=== PATIENT | female | born 1980 | race Caucasian/White ===

== ENCOUNTER → 2016-11-27 | Outpatient (CLI) | payer OTHER, BC ==
--- NOTE | 2016-11-27 12:33 | US ---
EXAMINATION TYPE: US abdomen complete DATE OF EXAM: 11/27/2016 10:52 AM COMPARISON: NONE CLINICAL HISTORY: Cholecystitis K81.9. ABD pain EXAM MEASUREMENTS: Liver Length: 12.5 cm Gallbladder Wall: 0.2 cm CBD: 0.4 cm Spleen: 9.1 cm Right Kidney: 11.8 x 4.7 x 4.7 cm Left Kidney: 11.1 x 5.0 x 4.4 cm Pancreas: wnl Liver: wnl Gallbladder: wnl Evidence for sonographic Zambrano's sign: No CBD: wnl Spleen: wnl Right Kidney: wnl Left Kidney: wnl Upper IVC: wnl Abd Aorta: wnl No abnormality visualized within ABD IMPRESSION: 1. Normal abdomen ultrasound
== END | disposition home or self-care (01) ==
LOC: RADUSWWP 10:20
PROVIDERS: ATTEND Internal Medicine
DX: K81.9 Cholecystitis, unspecified (principal)
CPT/HCPCS: 76700

== ENCOUNTER → 2016-12-11 | Outpatient (CLI) | payer OTHER, BC ==
--- NOTE | 2016-12-11 12:14 | NM ---
EXAMINATION TYPE: NM hepatobiliary w EF DATE OF EXAM: 12/11/2016 COMPARISON: NONE HISTORY: R1011 rt upper quad pain TECHNIQUE: After the intravenous administration of 5.2 mCi Tc 99m Mebrofenin hepatobiliary scintigrap hy is performed. Immediate images post injection. FINDINGS: There is satisfactory initial accumulation of tracer by the liver. The gallbladder is visualized wit hin 8 minutes. The small bowel activity is noted within 24 minutes. At one hour 8 ounces of oral en sure plus is given to mimic CCK and gallbladder ejection fraction is calculated at 90% . Therefore th ere is no scintigraphic evidence of cystic or common bile duct obstruction to suggest acute cholecyst itis or gallbladder dyskinesia. IMPRESSION: Elevated gallbladder ejection fraction which may reflect hypercontractile state.
== END | disposition home or self-care (01) ==
LOC: RADNMMAIN 10:03
PROVIDERS: ATTEND Internal Medicine
DX: K82.8 Other specified diseases of gallbladder (principal); R10.11 Right upper quadrant pain
CPT/HCPCS: 78226; A9537

== ENCOUNTER → 2018-03-30 | Outpatient (CLI) | payer BC ==
[2018-03-30 11:24] LABS: ALT 19 U/L (9-52); AST 21 U/L (14-36); Amylase 49 U/L (30-110); Blood Urea Nitrogen 14 mg/dL (7-17); Lipase 201 U/L (23-300)
[2018-03-30 16:59] LABS: Hepatitis A Antibody IgM Non-Reactive (Non-Reactive); Hepatitis B Core IgM Non-Reactive (Non-Reactive)
== END | disposition home or self-care (01) ==
LOC: LABWHC1 10:48
PROVIDERS: ATTEND Otolaryngology
DX: R14.0 Abdominal distension (gaseous) (principal); R53.83 Other fatigue
CPT/HCPCS: 36415; 80074; 82150; 82565; 83690; 84450; 84460; 84520

== ENCOUNTER 2022-07-14 09:34 | Observation (INO) | payer BC ==
--- NOTE | 2022-07-14 10:34 | ED ---
General Adult HPI - General Chief complaint: Chest Pain Stated complaint: chest pain Time Seen by Provider: 07/14/22 09:51 Source: patient Mode of arrival: ambulatory Limitations: no limitations - History of Present Illness Initial comments: Dictation was produced using [employer] dictation software. please excuse any grammatical, word or spelling errors. Chief Complaint: 42-year-old female presents emergency chest pain History of Present Illness: 42-year-old female she presents emergency department for chest pain. She initially presented to urgent care where she was redirected and sent to the emergency room. Since yesterday patient has been having dull achy chest pressure anteriorly. Shortly after she started to experience sharp pain that radiated to her right shoulder. She states that she did have some pain that went on to extremity. Patient denies any medical problems. Denies any history of tobacco use. States that her grandfather had been diagnosed with heart issues in his elderly years. Patient states that she does have some mild symptoms at the bedside. She did have some some nausea. No associated diaphore sis. The ROS documented in this emergency department record has been reviewed and confirmed by me. Those systems with pertinent positive or negative responses have been documented in the HPI. All other systems are other negative and/or noncontributory. PHYSICAL EXAM: General Impression: Alert and oriented x3, not in acute distress HEENT: Normocephalic atraumatic, extra-ocular movements intact, pupils equal and reactive to light bilaterally, mucous membranes moist. Cardiovascular: Heart regular rate and rhythm Chest: Able to complete full sentences, no retractions, no tachypnea Abdomen: abdomen soft, non-tender, non-distended, no organomegaly Musculoskeletal: Pulses present and equal in all extremities, no peripheral edema Motor: no focal deficits noted Neurological: CN II-XII grossly intact, no focal motor or sensory deficits noted Skin: Intact with no visualized rashes Psych: Normal affect and mood ED course: 42-year-old female presents emergency department for atypical chest pain with typical features. Vital signs upon arrival are within acceptable limits. Physical examination is benign. EKG shows no signs of ischemia or infarction. Nursing notes and chart review was performed EKG interpreted by me: Ventricular rate 85, sinus rhythm,. 151, QRS 86, QTC 49. No GA prolongation, no QTC prolongation, no ST or T-wave changes noted. Overall, this EKG is unremarkable Laboratory evaluation obtained. CBC, coag panel metabolic panel is unremarkable. Abdominal labs negative. Troponin is normal. Chest x-ray is nonacute. Disposition options were discussed with patient she would like to be admitted to observation for headache monitoring and cardiology consultation. Patient admitted to [facility]. Was pt. sent in by a medical professional or institution? @ no Did you speak to anyone other than the patient for history? @ no Did you review nursing and triage notes? @Yes, agree Were old charts reviewed? @No Differential Diagnosis? @ MDM Differential Chest Pain: Stable Angina, Unstable Angina, STEMI, NSTEMI Aortic Dissection, Pneumothorax, Musculoskeletal, Esophageal Spasm GERD, Cholecystitis, Pancreatitis, Zoster This is not meant to be an all-inclusive list. EKG interpreted by me (3pts min.)? @' see above X-rays interpreted by me (1pt min.)? @see above CT interpreted by me (1pt min.)? @ no U/S interpreted by me (1pt. min.)? @None What testing was considered but not performed? (CT, X-rays, U/S, labs)? Why? @CT was considered however low risk for pulmonary embolism What meds were considered but not given? Why? @ none Did you discuss the management of the patient with other professionals? @Case discussed with hospitalist Did you reconcile home meds? @ none Was smoking cessation discussed for >3mins.? @ none Was critical care preformed (if so, how long)? @ none Were there social determinants of health that impacted care today? How? (Homelessness, low income, unemployed, alcoholism, drug addiction, transportation, low edu. Level, literacy, decrease access to med. care, residential, rehab)? @ no Was there de-escalation of care discussed even if they declined? (Discuss DNR or withdrawal of care, Hospice)? @ na What co-morbidities impacted this encounter? (DM, HTN, Smoking, COPD, CAD, Cancer, CVA, Hep., AIDS, mental health diagnosis, sleep apnea, morbid obesit y)? @ none Was patient admitted / discharged? @Admitted to observation Undiagnosed new problem with uncertain prognosis? @Angina Drug Therapy requiring intensive monitoring for toxicity (Heparin, Nitro, Insulin, Cardizem)? @Cardiac monitoring Were any procedures done? @ none Diagnosis/symptom? @Atypical chest pain with typical features Acute, or Chronic, or Acute on Chronic? @Acute Uncomplicated (without systemic symptoms) or Complicated (systemic symptoms)? @Uncomplicated Side effects of treatment? @ none Exacerbation, Progression, or Severe Exacerbation] @ no Poses a threat to life or bodily function? @ no - Related Data Home Medications Medication Instructions Recorded Confirmed Atomoxetine HCl [Strattera] 50 mg PO HS 07/14/22 07/14/22 Ibuprofen [Motrin Ib] 800 mg PO Q8H PRN 07/14/22 07/14/22 Omeprazole 40 mg PO HS PRN 07/14/22 07/14/22 traZODone HCL [Desyrel] 50 mg PO HS 07/14/22 07/14/22 Allergies Allergy/AdvReac Type Severity Reaction Status Date / Time No Known Allergies Allergy Verified 07/14/22 11:50 Review of Systems ROS Statement: Those systems with pertinent positive or pertinent negative responses have been documented in the HPI. ROS Other: All systems not noted in ROS Statement are negative. Past Medical History Past Medical History: No Reported History History of Any Multi-Drug Resistant Organisms: None Reported Past Surgical History: Breast Surgery Past Psychological History: ADD/ADHD Smoking Status: Never smoker Past Alcohol Use History: Occasional Past Drug Use History: None Reported General Exam Limitations: no limitations Course Vital Signs 07/14/22 07/14/22 09:41 12:29 Temperature 98.6 F Pulse Rate 89 75 Respiratory 18 16 Rate Blood Pressure 127/84 123/81 O2 Sat by Pulse 100 99 Oximetry Medical Decision Making - Lab Data Result diagrams: 07/14/22 10:35 07/14/22 10:35 Lab Results 07/14/22 07/14/22 07/14/22 Range/Units 10:35 10:35 10:35 WBC 3.4 L (3.8-10.6) k/uL RBC 3.78 L (3.80-5.40) m/uL Hgb 12.5 (11.4-16.0) gm/dL Hct 36.7 (34.0-46.0) % MCV 97.3 (80.0-100.0) fL MCH 33.0 (25.0-35.0) pg MCHC 34.0 (31.0-37.0) g/dL RDW 12.1 (11.5-15.5) % Plt Count 188 (150-450) k/uL MPV 8.2 Neutrophils % 61 % Lymphocytes % 31 % Monocytes % 5 % Eosinophils % 1 % Basophils % 1 % Neutrophils # 2.1 (1.3-7.7) k/uL Lymphocytes # 1.1 (1.0-4.8) k/uL Monocytes # 0.2 (0-1.0) k/uL Eosinophils # 0.0 (0-0.7) k/uL Basophils # 0.0 (0-0.2) k/uL PT 10.1 (9.0-12.0) sec INR 0.9 (<1.2) APTT 22.7 (22.0-30.0) sec Sodium 139 (137-145) mmol/L Potassium 4.2 (3.5-5.1) mmol/L Chloride 104 (98-107) mmol/L Carbon Dioxide 28 (22-30) mmol/L Anion Gap 7 mmol/L BUN 13 (7-17) mg/dL Creatinine 0.70 (0.52-1.04) mg/dL Est GFR (CKD-EPI)AfAm >90 (>60 ml/min/1.73 sqM) Est GFR (CKD-EPI)NonAf >90 (>60 ml/min/1.73 sqM) Glucose 87 (74-99) mg/dL Calcium 9.3 (8.4-10.2) mg/dL Magnesium 2.0 (1.6-2.3) mg/dL Total Bilirubin 0.7 (0.2-1.3) mg/dL AST 27 (14-36) U/L ALT 20 (4-34) U/L Alkaline Phosphatase 47 (38-126) U/L Troponin I (0.000-0.034) ng/mL Total Protein 7.3 (6.3-8.2) g/dL Albumin 4.6 (3.5-5.0) g/dL Lipase 125 (23-300) U/L 07/14/22 Range/Units 10:35 WBC (3.8-10.6) k/uL RBC (3.80-5.40) m/uL Hgb (11.4-16.0) gm/dL Hct (34.0-46.0) % MCV (80.0-100.0) fL MCH (25.0-35.0) pg MCHC (31.0-37.0) g/dL RDW (11.5-15.5) % Plt Count (150-450) k/uL MPV Neutrophils % % Lymphocytes % % Monocytes % % Eosinophils % % Basophils % % Neutrophils # (1.3-7.7) k/uL Lymphocytes # (1.0-4.8) k/uL Monocytes # (0-1.0) k/uL Eosinophils # (0-0.7) k/uL Basophils # (0-0.2) k/uL PT (9.0-12.0) sec INR (<1.2) APTT (22.0-30.0) sec Sodium (137-145) mmol/L Potassium (3.5-5.1) mmol/L Chloride (98-107) mmol/L Carbon Dioxide (22-30) mmol/L Anion Gap mmol/L BUN (7-17) mg/dL Creatinine (0.52-1.04) mg/dL Est GFR (CKD-EPI)AfAm (>60 ml/min/1.73 sqM) Est GFR (CKD-EPI)NonAf (>60 ml/min/1.73 sqM) Glucose (74-99) mg/dL Calcium (8.4-10.2) mg/dL Magnesium (1.6-2.3) mg/dL Total Bilirubin (0.2-1.3) mg/dL AST (14-36) U/L ALT (4-34) U/L Alkaline Phosphatase (38-126) U/L Troponin I <0.012 (0.000-0.034) ng/mL Total Protein (6.3-8.2) g/dL Albumin (3.5-5.0) g/dL Lipase (23-300) U/L Disposition Clinical Impression: Chest pain Disposition: ADMITTED IP TO THIS HOSP Condition: Fair Referrals: Yann Schmitt MD [Primary Care Provider] - 1-2 days Decision Time: 12:36
--- NOTE | 2022-07-14 10:41 | XR ---
EXAMINATION TYPE: XR chest 2V DATE OF EXAM: 07/14/2022 10:10 AM COMPARISON: None TECHNIQUE: XR chest 2V Frontal and lateral views of the chest. CLINICAL INDICATION:Female, 42 years old with history of pain; FINDINGS: Lungs/Pleura: There is no evidence of pleural effusion, focal consolidation, or pneumothorax. Pulmonary vascularity: Unremarkable. Heart/mediastinum: Cardiomediastinal silhouette is unremarkable. Musculoskeletal: No acute osseous pathology. IMPRESSION: No acute cardiopulmonary disease/process.
[2022-07-14 11:07] LABS: Basophils % (A) 1 %; Eosinophils % (A) 1 %; HCT 36.7 % (34.0-46.0); HGB 12.5 gm/dL (11.4-16.0); Lymphocytes # (A) 1.1 k/uL (1.0-4.8); Lymphocytes % (A) 31 %; MCV 97.3 fL (80.0-100.0); Mean Platelet Volume 8.2; Monocytes # (A) 0.2 k/uL (0-1.0); Monocytes % (A) 5 %; Neutrophils # (A) 2.1 k/uL (1.3-7.7); Neutrophils % (A) 61 %; Platelet Count 188 k/uL (150-450); RBC 3.78 m/uL (3.80-5.40); RDW 12.1 % (11.5-15.5); WBC 3.4 k/uL (3.8-10.6)
[2022-07-14 11:11] LABS: ALT 20 U/L (4-34); AST 27 U/L (14-36); African American GFR (CKD) >90 (>60 ml/min/1.73 sqM); Albumin 4.6 g/dL (3.5-5.0); Alkaline Phosphatase 47 U/L (38-126); Anion Gap 7 mmol/L; Blood Urea Nitrogen 13 mg/dL (7-17); Calcium 9.3 mg/dL (8.4-10.2); Carbon Dioxide 28 mmol/L (22-30); Chloride 104 mmol/L (98-107); Glucose 87 mg/dL (74-99); Lipase 125 U/L (23-300); Non-African American GFR(CKD) >90 (>60 ml/min/1.73 sqM); Potassium 4.2 mmol/L (3.5-5.1); Sodium 139 mmol/L (137-145); Total Bilirubin 0.7 mg/dL (0.2-1.3); Total Protein 7.3 g/dL (6.3-8.2)
[2022-07-14 11:33] LABS: INR 0.9 (<1.2); Partial Thromboplastin Time 22.7 sec (22.0-30.0); Prothrombin Time 10.1 sec (9.0-12.0)
[2022-07-14] MEDS ORDERED: ASPIRIN 81 MG PO STA (12:32)
[2022-07-14] MEDS ORDERED: NITROGLYCERIN SL TABS 0.4 MG TAB SUBLINGUAL PRN (12:36)
[2022-07-14] MEDS ORDERED: PANTOPRAZOLE 40 MG TABLET PO PRN (16:52)
--- NOTE | 2022-07-14 17:13 | P.HPIM ---
History of Present Illness H&P Date: 07/14/22 Patient is a pleasant 42-year-old female who presents to [facility] sudden onset chest pain. Chest pain started yesterday. Pain was described as sharp and radiating to the back. Patient denies headache or lightheadedness. Patient further denies exertional dyspnea or orthopnea. Patient does have a history of indigestion. Patient admits to diaphoresis during the episode. Patient states this has never happened before. As a result, patient went to the urgent care. Due to patient's symptoms patient was advised to go to the emergency department. Patient denies history of hypertension, hyperlipidemia, or cardiac disease. Patient does have a history of acid reflux. Patient also notes intermittent episodes of right upper quadrant pain described as an ache. Patient denies nausea vomiting. Patient further denies diarrhea or constipation. Laboratory data and EKG was fairly insignificant. Chest x-ray revealed no acute cardiopulmonary process. Review of Systems A 14 point review systems was assessed patient is also only positive for those assessment HPI Past Medical History Past Medical History: GERD/Reflux History of Any Multi-Drug Resistant Organisms: None Reported Past Surgical History: Breast Surgery Additional Past Surgical History / Comment(s): Bilateral breast implants Past Anesthesia/Blood Transfusion Reactions: Motion Sickness Additional Past Anesthesia/Blood Transfusion Reaction / Comment(s): Pt has clausterphobia Smoking Status: Never smoker - Past Family History Father Family Medical History: No Reported History Mother Family Medical History: No Reported History Medications and Allergies Home Medications Medication Instructions Recorded Confirmed Type Atomoxetine HCl [Strattera] 50 mg PO HS 07/14/22 07/14/22 History Ibuprofen [Motrin Ib] 800 mg PO Q8H PRN 07/14/22 07/14/22 History Omeprazole 40 mg PO HS PRN 07/14/22 07/14/22 History traZODone HCL [Desyrel] 50 mg PO HS 07/14/22 07/14/22 History Allergies Allergy/AdvReac Type Severity Reaction Status Date / Time No Known Allergies Allergy Verified 07/14/22 11:50 Physical Exam Osteopathic Statement: *. No significant issues noted on an osteopathic structural exam other than those noted in the History and Physical/Consult. Vitals: Vital Signs Temp Pulse Resp BP BP Pulse Ox 07/14/22 16:51 16 123/81 97 07/14/22 12:29 75 16 123/81 99 07/14/22 09:41 98.6 F 89 18 127/84 100 Intake and Output 07/14/22 07/14/22 07/14/22 06:59 14:59 22:59 Other: Weight 72.121 kg 72.121 kg General: [non toxic], [no distress], [appears at stated age] Derm: [warm], [dry] Head: [atraumatic], [normocephalic], [symmetric] Eyes: [EOMI], [no lid lag], [anicteric sclera] Mouth: [no lip lesion], [mucus membranes moist] Cardiovascular: [S1S2 reg], [no murmur], [positive posterior tibial pulse bilateral], Lungs: [CTA bilateral], [no rhonchi, no rales] , [no accessory muscle use] Abdominal: [soft], [ nontender to palpation], [no guarding], [no appreciable organomegaly] Ext: [no gross muscle atrophy], [no edema], [no contractures] Neuro: [ CN II-XI grossly intact], [no focal neuro deficits] Psych: [Alert], [oriented], [appropriate affect] Results CBC & Chem 7: 07/14/22 10:35 07/14/22 10:35 Labs: Abnormal Lab Results - Last 24 Hours (Table) 07/14/22 Range/Units 10:35 WBC 3.4 L (3.8-10.6) k/uL RBC 3.78 L (3.80-5.40) m/uL Thrombosis Risk Factor Assmnt - DVT/VTE Prophylaxis DVT/VTE Prophylaxis: Mechanical Prophylaxis ordered - Choose All That Apply Any of the Below Risk Factors Present?: Yes Each Factor Represents 1 point: Age 41-60 years Other Risk Factors: No Other congenital or acquired thrombophilia - If yes, enter type in comment: No Thrombosis Risk Factor Assessment Total Risk Factor Score: 1 Thrombosis Risk Factor Assessment Level: Low Risk Assessment and Plan Assessment: 1. Atypical chest pain likely due to acid reflux rule out cardiac process Check echocardiogram Telemetry Consult cardiology Admit to observation 2. Abdominal pain with history acid reflux Laboratory data negative Check ultrasound of abdomen 3. History of attention deficit disorder Restart Strattera 4. GERD Restart PPI 5. A.m. labs 6. GI DVT prophylaxis Disposition: Admit to observation discharge planning hopefully in the morning Patient is a full code Greater than 45 minutes spent coordinating care documenting and counselling patient PCP is Dr. Schmitt Time with Patient: Greater than 30
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
[2022-07-14] MEDS ORDERED: traZODone HCL 50 MG TAB PO SCH (21:00)
[2022-07-14] MEDS ORDERED: Atomoxetine Hcl [Strattera] 25 MG Capsule PO SCH (21:00)
[2022-07-15 07:57] VITALS: BP 111/72; PULSE 66; RESP 16; TEMP 98.3
[2022-07-15 08:47] LABS: Basophils # (A) 0.04 X 10*3/uL (0.00-0.10); Basophils % (A) 1.4 %; Eosinophils # (A) 0.07 X 10*3/uL (0.04-0.35); Eosinophils % (A) 2.4 %; HCT 35.7 % (37.2-46.3); Immature Grans, Automated 0 %; Lymphocytes # (A) 1.41 X 10*3/uL (0.90-5.00); MCH 32.5 pg (27.0-32.0); MCHC 33.6 g/dL (32.0-37.0); MCV 96.7 fL (80.0-97.0); Mean Platelet Volume 9.8 fL (9.5-12.2); Monocytes # (A) 0.37 X 10*3/uL (0.20-1.00); Monocytes % (A) 12.6 %; NRBC Per 100 WBC 0 /100 WBCS (0.0-0.0); Neutrophils # (A) 1.05 X 10*3/uL (1.80-7.70); Neutrophils % (A) 35.6 %; Platelet Count 197 X 10*3/uL (140-440); RBC 3.69 X 10*6/uL (4.10-5.20); RDW 12.2 % (11.5-14.5); WBC 2.94 X 10*3/uL (4.50-10.00)
[2022-07-15] MEDS ORDERED: ASPIRIN 81 MG PO SCH (09:00)
[2022-07-15] MEDS ORDERED: ASPIRIN 325 MG TAB PO SCH (09:00)
[2022-07-15 09:03] LABS: Chol/HDL Ratio 2.28 Ratio; LDL Cholesterol,Calculated 94.4 mg/dL (0.0-131.0); VLDL Calculation 15.54 mg/dL (5.00-40.00)
--- NOTE | 2022-07-15 09:45 | CA ---
Transthoracic Echo Report Name: Brenda Cardona Age: 42 Gender: F : 1980 Exam Date: 07/14/2022 14:51 Exam Location: [facility] Ht (in): 66 Wt (lb): 159 Ordering Physician: Adilia Dubose DO Attending/Referring Phys: Retail Account Specialist Belgica Zavala RDCS Procedure CPT: Indications: Chest Pain Cardiac Hx: Technical Quality: Fair Contrast 1: Total Dose (mL): Contrast 2: Total Dose (mL): MEASUREMENTS (Male / Female) Normal Values 2D ECHO LV Diastolic Diameter PLAX 3.7 cm 4.2 - 5.9 / 3.9 - 5.3 cm LV Systolic Diameter PLAX 2.5 cm IVS Diastolic Thickness 1.1 cm 0.6 - 1.0 / 0.6 - 0.9 cm LVPW Diastolic Thickness 1.3 cm 0.6 - 1.0 / 0.6 - 0.9 cm LV Relative Wall Thickness 0.7 RV Internal Dim ED PLAX 2.7 cm LA Volume 46.7 cm??? 18 - 58 / 22 - 52 cm??? M-MODE Aortic Root Diameter MM 2.4 cm LA Systolic Diameter MM 3.7 cm LA Ao Ratio MM 1.5 AV Cusp Separation MM 1.8 cm DOPPLER AV Peak Velocity 128.5 cm/s AV Peak Gradient 6.6 mmHg LVOT Peak Velocity 79.6 cm/s LVOT Peak Gradient 2.5 mmHg MV Area PHT 3.2 cm??? Mitral E Point Velocity 67.9 cm/s Mitral A Point Velocity 95.2 cm/s Mitral E to A Ratio 0.7 MV Deceleration Time 237.6 ms TR Peak Velocity 180.8 cm/s TR Peak Gradient 13.1 mmHg Right Ventricular Systolic Press 18.1 mmHg FINDINGS Left Ventricle Mildly increased left ventricular wall thickness. Normal left ventricular systolic function with no obvious regional wall motion abnormalities. Left ventricular ejection fraction is estimated at 55-60 %. Right Ventricle Normal right ventricular size and function. Right ventricular systolic pressure within normal limits. Right Atrium Normal right atrial size. Left Atrium Normal left atrial size. Mitral Valve Structurally normal mitral valve. Mitral valve thickened. Mild mitral regurgitation. Aortic Valve Trileaflet aortic valve. No aortic valve stenosis or regurgitation. Tricuspid Valve Structurally normal tricuspid valve. Mild tricuspid regurgitation. Pulmonic Valve Trace pulmonic regurgitation. Pericardium No pericardial effusion. Aorta Normal size aortic root and proximal ascending aorta. CONCLUSIONS Left ventricular ejection fraction 55-60% Mild increased left ventricular wall thickness RVSP 18 Mild mitral regurgitation Mild tricuspid regurgitation No pericardial effusion Previewed by: Dr. Reece Delong DO (Electronically Signed) Final Date: 15 July 2022 09:45
--- NOTE | 2022-07-15 10:07 | P.CRDCN ---
History of Present Illness Consult date: 07/15/22 History of present illness: HISTORY OF PRESENT ILLNESS: This is a 42-year-old female with a past medical history significant for GERD. 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 We have been asked to see the patient in consultation for chest pain. Patient examined at the bedside. Patient states that she began having chest pain a few days ago. She states initially she thought this was heartburn which she gets frequently and is on medication for GERD. She reports that she developed pain in her right shoulder blade and nausea. She initially thought she had the stomach flu but her symptoms did not resolve. She reports occasionally feeling skipped beats or fluttering of her heart. She also reports randomly getting short of breath and feels like she cannot take a deep breath. She ended up going to urgent care in [place] where they did an EKG and recommended that she come to the hospital for further evaluation. She is a nonsmoker. She reports occasional alcohol use. She denies any drug use or marijuana use. She does report a family history of coronary artery disease although she does not know the exact details. * EKG reveals sinus mechanism with no signs of acute ischemia * Chest xray negative for acute process * Laboratory data: WBC 2.94. Hemoglobin 12.0. Platelet count 197. D-dimer 0.28. Sodium 139. Potassium 4.2. BUN 13. Creatinine 0.70. Troponin negative 3. * Current home cardiac medications include none * Echocardiogram obtained revealing ejection fraction 55-60%, mild MR, mild TR REVIEW OF SYSTEMS: At the time of my exam: CONSTITUTIONAL: Denies fever or chills. HEENT: Denies blurred vision, vision changes, or eye pain. Denies hemoptysis CARDIOVASCULAR: Denies chest pain. Denies orthopnea. Denies PND. Denies palpitations RESPIRATORY: Denies shortness of breath. GASTROINTESTINAL: Denies abdominal pain. Denies nausea or vomiting. HEMATOLOGIC: Denies bleeding disorders. GENITOURINARY: Denies any blood in urine. SKIN: Denies pruitis. Denies rash. PHYSICAL EXAM: VITAL SIGNS: Reviewed. GENERAL: Well-developed in no acute distress. HEENT: Head is normocephalic. Pupils are equal, round. Sclerae anicteric. Mucous membranes of the mouth are moist. Neck supple. No JVD or thyromegaly LUNGS: Respirations even and unlabored. Lungs essentially clear to auscultation bilaterally. HEART: Regular rate and rhythm. S1 and S2 heard. ABDOMEN: Soft. Nondistended. Nontender. EXTREMITIES: Normal range of motion. No clubbing or cyanosis. Peripheral pulses intact. No lower extremity edema NEUROLOGIC: Awake and alert. Oriented x 3. ASSESSMENT: Chest pain, troponins negative 3 Palpitations GERD PLAN: An acute coronary event has been ruled out 2-D echo obtained and reviewed Patient to undergo stress echocardiogram to rule out ischemia If negative, she may be discharged home today from a cardiac standpoint Patient to follow up outpatient with Dr. Delong If her symptoms of palpitations continue, will consider event monitor on an outpatient basis Nurse practitioner note has been reviewed by physician. Signing provider agrees with the documented findings, assessment, and plan of care. Past Medical History Past Medical History: GERD/Reflux History of Any Multi-Drug Resistant Organisms: None Reported Past Surgical History: Breast Surgery Additional Past Surgical History / Comment(s): Bilateral breast implants Past Anesthesia/Blood Transfusion Reactions: Motion Sickness Additional Past Anesthesia/Blood Transfusion Reaction / Comment(s): Pt has clausterphobia Smoking Status: Never smoker - Past Family History Father Family Medical History: No Reported History Mother Family Medical History: No Reported History Medications and Allergies Home Medications Medication Instructions Recorded Confirmed Type Atomoxetine HCl [Strattera] 50 mg PO HS 07/14/22 07/14/22 History Ibuprofen [Motrin Ib] 800 mg PO Q8H PRN 07/14/22 07/14/22 History Omeprazole 40 mg PO HS PRN 07/14/22 07/14/22 History traZODone HCL [Desyrel] 50 mg PO HS 07/14/22 07/14/22 History Allergies Allergy/AdvReac Type Severity Reaction Status Date / Time No Known Allergies Allergy Verified 07/14/22 11:50 Physical Exam Vitals: Vital Signs Temp Pulse Pulse Resp BP BP Pulse Ox 07/15/22 02:40 98.0 F 97 17 106/68 99 07/14/22 19:44 98.0 F 87 18 143/87 100 07/14/22 16:51 16 123/81 97 07/14/22 12:29 75 16 123/81 99 07/14/22 09:41 98.6 F 89 18 127/84 100 Intake and Output 07/14/22 07/15/22 07/15/22 22:59 06:59 14:59 Other: # Voids 1 1 Weight 72.121 kg Results 07/15/22 05:48 07/14/22 10:35 Cardiac Enzymes 07/14/22 07/14/22 07/14/22 Range/Units 10:35 10:35 13:12 AST 27 (14-36) U/L Troponin I <0.012 <0.012 (0.000-0.034) ng/mL 07/14/22 Range/Units 17:33 AST (14-36) U/L Troponin I <0.012 (0.000-0.034) ng/mL Coagulation 07/14/22 Range/Units 10:35 PT 10.1 (9.0-12.0) sec APTT 22.7 (22.0-30.0) sec CBC 07/14/22 Range/Units 10:35 WBC 3.4 L (3.8-10.6) k/uL RBC 3.78 L (3.80-5.40) m/uL Hgb 12.5 (11.4-16.0) gm/dL Hct 36.7 (34.0-46.0) % Plt Count 188 (150-450) k/uL Comprehensive Metabolic Panel 07/14/22 Range/Units 10:35 Sodium 139 (137-145) mmol/L Potassium 4.2 (3.5-5.1) mmol/L Chloride 104 (98-107) mmol/L Carbon Dioxide 28 (22-30) mmol/L BUN 13 (7-17) mg/dL Creatinine 0.70 (0.52-1.04) mg/dL Glucose 87 (74-99) mg/dL Calcium 9.3 (8.4-10.2) mg/dL AST 27 (14-36) U/L ALT 20 (4-34) U/L Alkaline Phosphatase 47 (38-126) U/L Total Protein 7.3 (6.3-8.2) g/dL Albumin 4.6 (3.5-5.0) g/dL Current Medications Generic Name Dose Route Start Last Admin Trade Name Freq PRN Reason Stop Dose Admin Nitroglycerin 0.4 mg 07/14/22 12:36 Nitroglycerin Sl Tabs 0.4 Mg Tab SUBLINGUAL Q5M PRN Chest Pain Atomoxetine Hcl [ 50 mg 07/14/22 21:00 07/14/22 21:44 Strattera] 25 Mg PO Not Given Capsule HS BERTO Pantoprazole Sodium 40 mg 07/14/22 16:52 Pantoprazole 40 Mg Tablet PO HS PRN Heartburn Trazodone HCl 50 mg 07/14/22 21:00 07/14/22 21:45 Trazodone Hcl 50 Mg Tab PO 50 mg HS BERTO Administration Intake and Output 07/14/22 07/15/22 07/15/22 22:59 06:59 14:59 Other: # Voids 1 1 Weight 72.121 kg 07/14/22 10:35 07/14/22 10:35
[2022-07-15 11:28] LABS: ALT 15 U/L (8-44); AST 18 U/L (13-35); African American GFR (CKD) 108.2 (60.0-200.0); Albumin 4.2 g/dL (3.8-4.9); Alkaline Phosphatase 42 U/L (41-126); BUN/Creat Ratio 15.81 Ratio (12.00-20.00); Blood Urea Nitrogen 12.3 mg/dL (9.0-27.0); Chloride 103 mmol/L (96-109); Globulin 2.1 g/dL (1.6-3.3); Glucose 89 mg/dL (70-110); Magnesium 2.1 mg/dL (1.5-2.4); Non-African American GFR(CKD) 93.4 (60.0-200.0); Sodium 138 mmol/L (135-145); Total Protein 6.3 g/dL (6.2-8.2)
--- NOTE | 2022-07-15 13:01 | CA ---
Stress Echo Report Brenda Cardona Age: 42 Gender: F : 1980 Exam Date: 07/15/2022 10:09 Exam Location: [place] Stress Ht (in): 66 Wt (lb): 159 Ordering Physician: Liana Lindsey Referring Physician: EBONI,, Relay Dispatcher: Elia Almanzar Technologist Procedure CPT: Indication: CP ICD-9 Codes: Rhythm: Patient History: CHEST PAIN, DIFFICULTY IN BREATHING, PALPITATIONS Cardiac Medications: Medications in past 24 hours: Contrast: Stress Results Protocol: Fausto Total dose(mL): Exercise Duration (min:sec): Max ST Depression (mm): Angina Score: Stanton Score: METS: 9.9 Resting HR: 104 Resting BP: 104 / 80 Peak HR: 161 Peak BP: 182 / 109 Max Predicted HR: 177 91 % Max Predicted HR Target HR: 150 Double Product: [id number] Stress Summary: BP Response: Reason for Termination: Cardiac Symptoms: NO SYMPTOMS ECG Analysis Resting ECG: Stress ECG: Arrhythmia: Echo Analysis Resting Echo: Peak Echo Analysis: MEASUREMENTS (Male/Female) Normal Values CONCLUSIONS Patient underwent exercise stress echo with a Fausto protocol treadmill stress test. Patient exercised into Stage 3 for a total of 8 minutes and 13 seconds reaching a total of 9.9 METS. Patient's maximum heart rate was 161 which represented 90 % age- predicted maximum heart rate. Stress EKG portion: At baseline patient's EKG showed normal sinus rhythm, normal axis, no significant ST or T wave abnormalities. At peak exercise, EKG showed nonspecific 0.5-[address] depressions V3 through V6. Stress echo portion: 2-D echocardiogram was performed in the parasternal long, personal short, apical 2 and apical four-chamber views at rest, peak exercise and in recovery. At baseline, echocardiogram showed left ventricular ejection fraction 55 % without wall motion abnormalities. With peak exercise, echocardiogram shows improvement in left ventricular ejection fraction, increase contractility, decrease in left ventricular end systolic dimension without wall motion abnormalities consistent with a normal response to exercise. Conclusions: 1. Normal EKG and echo response to exercise without evidence of inducible ischemia. 2. Fair exercise capacity. Dr. Reece Delong DO (Electronically Signed) Final Date: 15 July 2022 13:01
--- NOTE | 2022-07-15 13:08 | P.DS ---
Providers Date of admission: 07/14/22 12:36 Expected date of discharge: 07/15/22 Attending physician: Adilia Dubose DO Consults: 07/14/22 12:36 Consult Physician Urgent Consulting Provider: Reece Delong Consult Reason/Comments: chest pain Do you want consulting provider notified?: Yes Primary care physician: [facility] Course: Admitting diagnoses: Atypical chest pain Discharge diagnoses: Atypical chest GERD ADD Leukopenia Clinical course: Patient is a pleasant 42-year-old female who presents to [facility] sudden onset chest pain. Chest pain started yesterday. Pain was described as sharp and radiating to the back. Patient denies headache or lightheadedness. Patient further denies exertional dyspnea or orthopnea. Patient does have a history of indigestion. Patient admits to diaphoresis during the episode. Patient states this has never happened before. As a result, patient went to the urgent care. Due to patient's symptoms patient was advised to go to the emergency department. Patient denies history of hypertension, hyperlipidemia, or cardiac disease. Patient does have a history of acid reflux. Patient also notes intermittent episodes of right upper quadrant pain described as an ache. Patient denies nausea vomiting. Patient further denies diarrhea or constipation. Laboratory data and EKG was fairly insignificant. Chest x-ray revealed no acute cardiopulmonary process. 1. Atypical chest pain likely due to acid reflux rule out cardiac process Echocardiogram was fairly insignificant with an ejection fraction of 55-60%. Stress echo negative for ischemia Telemetry Cardiology followed D-dimer within normal limits 2. Abdominal pain with history acid reflux Laboratory data negative Ultrasound of abdomen complete negative for any acute or chronic intra-abdominal process 3. History of attention deficit disorder Restart Strattera 4. GERD Restart PPI 5. Leukopenia Follow-up with PCP Physical exam: General: [non toxic], [no distress], [appears at stated age] Derm: [warm], [dry] Head: [atraumatic], [normocephalic], [symmetric] Eyes: [EOMI], [no lid lag], [anicteric sclera] Mouth: [no lip lesion], [mucus membranes moist] Cardiovascular: [S1S2 reg], [no murmur], [positive posterior tibial pulse bilateral], Lungs: [CTA bilateral], [no rhonchi, no rales] , [no accessory muscle use] Abdominal: [soft], [ nontender to palpation], [no guarding], [no appreciable organomegaly] Ext: [no gross muscle atrophy], [no edema], [no contractures] Neuro: [ CN II-XI grossly intact], [no focal neuro deficits] Psych: [Alert], [oriented], [appropriate affect] Disposition: Home Condition: Fair Activity: As tolerated Diet: Regular Follow-up with PCP in 2-7 days Patient Condition at Discharge: Fair Plan - Discharge Summary Discharge Rx Participant: Yes New Discharge Prescriptions: Continue traZODone HCL [Desyrel] 50 mg PO HS Ibuprofen [Motrin Ib] 800 mg PO Q8H PRN PRN Reason: Pain Atomoxetine HCl [Strattera] 50 mg PO HS Omeprazole 40 mg PO HS PRN PRN Reason: Heartburn Discharge Medication List Atomoxetine HCl [Strattera] 50 mg PO HS 07/14/22 [History] Ibuprofen [Motrin Ib] 800 mg PO Q8H PRN 07/14/22 [History] Omeprazole 40 mg PO HS PRN 07/14/22 [History] traZODone HCL [Desyrel] 50 mg PO HS 07/14/22 [History] Follow up Appointment(s)/Referral(s): Yann Schmitt MD [Primary Care Provider] - 1-2 days Discharge Disposition: HOME SELF-CARE
== END 2022-07-15 13:58 | disposition home or self-care (01) ==
LOC: EC 09:34 → 6NMEDSUR 12:36
PROVIDERS: ADMIT Internal Medicine; ATTEND Internal Medicine
DX: R07.89 Other chest pain (principal); K21.9 Gastro-esophageal reflux disease without esophagitis; F98.8 Other specified behavioral and emotional disorders with onset usually occurring in childhood and adolescence; D72.819 Decreased white blood cell count, unspecified; I08.1 Rheumatic disorders of both mitral and tricuspid valves; R10.9 Unspecified abdominal pain; I37.1 Nonrheumatic pulmonary valve insufficiency; Z98.82 Breast implant status; Z79.899 Other long term (current) drug therapy; Z82.49 Family history of ischemic heart disease and other diseases of the circulatory system
CPT/HCPCS: 99285; 36415; 93005; 93306; 93351; 85379; 80061; 80053 ×2; 84443; 83690; 83735 ×2; 84484; 85025 ×2; 85610; 85730; 71046; 76700; G0378 ×2